=== PATIENT | male | born 1995 | race Caucasian/White ===

== ENCOUNTER 2018-09-22 22:11 | Emergency (ER) | payer OTHER ==
[~2018-09-22] VITALS: Ht 182.9 cm; Wt 83.0 kg
[2018-09-22] MEDS ORDERED: DIAZEPAM 5 MG TABLET ONE (23:03)
[2018-09-22] MEDS ORDERED: HYDROcodone/APAP 5/325 TABLET ONE (23:03)
[2018-09-22] MEDS ORDERED: KETOROLAC 30 MG/1 ML ONE (23:03)
[2018-09-22 23:28] LABS: ANION GAP 6 mmol/L (5-15); CALCIUM 8.6 mg/dL (8.5-10.1); CHLORIDE 104 mmol/L (98-107); CREATININE 1.04 mg/dL (0.7-1.3)
[2018-09-22] MEDS ORDERED: DIAZEPAM 5 MG TABLET PO ONE (23:30)
[2018-09-22] MEDS ORDERED: HYDROcodone/APAP 5/325 TABLET PO ONE (23:30)
[2018-09-22] MEDS ORDERED: KETOROLAC 30 MG/1 ML IM ONE (23:30)
[2018-09-22 23:36] LABS: MICROSCOPIC NOT IND
[2018-09-22 23:59] VITALS: BP 108/68
== END 2018-09-23 00:01 | disposition home or self-care (01) ==
LOC: ED 22:57
DX: S39.012A Strain of muscle, fascia and tendon of lower back, initial encounter (principal); X58.XXXA Exposure to other specified factors, initial encounter; Y93.89 Activity, other specified; Y92.89 Other specified places as the place of occurrence of the external cause; Y99.8 Other external cause status
CPT/HCPCS: 36415; 72110; 80048; 81003; 96372; 99284; J1885